=== PATIENT | female | born 1950 | race American Indian/Alaskan Native ===

== ENCOUNTER 2016-11-08 23:11 | Emergency (ER) | payer MEDICARE ==
[2016-11-08 23:39] VITALS: BP 146/85
--- NOTE | 2016-11-08 23:51 | Emergency Department Report ---
Chief Complaint: Abdominal Pain Stated Complaint: ABDOMINAL PAIN - [facility] History of Present Illness: Patient presents with abdominal pain, chest pain (burning), nausea. States the nausea and abdominal pain started in 2012. Had hysterectomy 11/03/16, however abdominal pain started 2012, since then has had colonoscopy/endoscopy, CT abdomen all was wnl. Admits to epigastric pain as burning. Admits to nausea. This episode started 2 hours ago. - ROS Review of Systems: All other systems unremarkable except documentation in HPI - Exam Vital Signs: Vital Signs 11/08/16 23:35 Temperature 98.5 F Pulse Rate 72 Respiratory 20 Rate Blood Pressure 146/85 O2 Sat by Pulse 97 Oximetry Physical Exam: Gen: Female well-developed and nourished, no apparent distress noted, appears to be in pain but nontoxic, patient in wheelchair at time of exam. Cardiovascular: Heart sounds present S1-S2, no murmur, gallop, edema or ectopy noted, 2+ pulses upper and lower extremities Respiratory: Chest symmetry with respirations, lungs clear to auscultate upper and lower lobes, respirations even and unlabored, no rales, rhonchi, crackles noted. Abdomen: bowel sounds hypoactive, hard, distended, tender to palpation just above hysterectomy scar/esequiel, no rigidity, guarding or rebound tenderness Skin: Vertical hysterectomy esequiel present, no redness, drainage, swelling noted. Appears to be healing well Psych: AxOx3, answers questions appropriately, mood full range, affect normal, normal speech and tone. MSE screening note: Focused history and physical exam performed. Due to findings the following was ordered: seen by provider, laboratory and radiology studies ordered, and to go to main ED to be seen by physician ED Medical Decision Making - Medical Decision Making seen by provider, laboratory and radiology studies ordered, and to go to main ED to be seen by physician ED Disposition for MSE Condition: Stable Instructions: Abdominal Pain (ED)
[2016-11-08] MEDS ORDERED: ZOFRAN ODT PO ONE (23:52)
[2016-11-09 00:08] LABS: Basophils % (Auto) 0.7 % (0.0-1.8); Eosinophils % (Auto) 3.4 % (0.0-4.3); Hematocrit 33.7 % (30.3-42.9); Hemoglobin 10.5 gm/dl (10.1-14.3); Mean Corpuscular HGB Conc 31 % (30-34); Mean Corpuscular Hemoglobin 28 pg (28-32); Mean Corpuscular Volume 88 fl (79-97); Platelet Count 364 K/mm3 (140-440); Red Blood Count 3.82 M/mm3 (3.65-5.03); Red Cell Distribution Width 15.2 % (13.2-15.2); White Blood Count 9.5 K/mm3 (4.5-11.0)
[2016-11-09 00:31] LABS: Alanine Aminotransferase 12 units/L (7-56); Albumin 3.8 g/dL (3.9-5); Albumin/Globulin Ratio 1.2 %; Alkaline Phosphatase 86 units/L (35-129); BUN/Creatinine Ratio 21.66; Bilirubin,Total 0.3 mg/dL (0.1-1.2); Blood Urea Nitrogen 13 mg/dL (7-17); Calcium 9.5 mg/dL (8.4-10.2); Carbon Dioxide 28 mmol/L (22-30); Chloride 95.6 mmol/L (98-107); Glucose 113 mg/dL (65-100); Lipase 32 units/L (13-60); Potassium 3.9 mmol/L (3.6-5.0); Sodium 137 mmol/L (137-145); Total Protein 7.1 g/dL (6.3-8.2)
[2016-11-09 00:36] LABS: Anion Gap 17 mmol/L
--- NOTE | 2016-11-09 10:46 | XRay Report ---
KUB: There is marked gaseous distention of the proximal and transverse portions of the colon. The diameter of the transverse colon is just under 12 cm. There is some fecal matter in the descending and sigmoid portions of the colon but there is no obvious impaction. No obvious free air or soft tissue mass. There are surgical closure esequiel over the left pelvis. Impression: Significant colonic distention.
--- NOTE | 2016-11-13 16:34 | ED Elopement Review ---
ED Pt Elopement review - Results review Lab results: Laboratory Tests 11/08/16 11/08/16 11/09/16 23:58 23:58 02:54 WBC 9.5 RBC 3.82 Hgb 10.5 Hct 33.7 MCV 88 MCH 28 MCHC 31 RDW 15.2 Plt Count 364 Lymph % (Auto) 11.8 L [place] % (Auto) 4.9 Eos % (Auto) 3.4 Baso % (Auto) 0.7 Lymph # 1.1 L [place] # 0.5 Eos # 0.3 Baso # 0.1 Seg Neutrophils % 79.2 H Seg Neutrophils # 7.5 Sodium 137 Potassium 3.9 Chloride 95.6 L Carbon Dioxide 28 Anion Gap 17 BUN 13 Creatinine 0.6 L Estimated GFR > 60 BUN/Creatinine Ratio 21.66 Glucose 113 H Calcium 9.5 Total Bilirubin 0.3 AST 15 ALT 12 Alkaline Phosphatase 86 Troponin T < 0.010 Total Protein 7.1 Albumin 3.8 L Albumin/Globulin Ratio 1.2 Lipase 32 - Call Back decision Pt Call Back Decision: No action required
== END 2016-11-09 00:05 | disposition left against medical advice (07) ==
LOC: ED 23:11
DX: R10.9 Unspecified abdominal pain (principal); R07.9 Chest pain, unspecified; R11.0 Nausea; Z53.21 Procedure and treatment not carried out due to patient leaving prior to being seen by health care provider
CPT/HCPCS: 36415; 74000; 80053; 83690; 84484; 85025; 93005; 93010; Q0162

== ENCOUNTER 2018-01-24 14:00 | Observation (INO) | payer MEDICARE, OTHER ==
[2018-01-24] MEDS ORDERED: ASPIRIN PO ONE (14:29)
[2018-01-24 15:23] LABS: Eosinophils # (Auto) 0.1 K/mm3 (0.0-0.4); Eosinophils % (Auto) 1.7 % (0.0-4.3); Hematocrit 28.5 % (30.3-42.9); Hemoglobin 9.4 gm/dl (10.1-14.3); Lymphocytes # (Auto) 0.8 K/mm3 (1.2-5.4); Lymphocytes % (Auto) 25.7 % (13.4-35.0); Mean Corpuscular HGB Conc 33 % (30-34); Mean Corpuscular Hemoglobin 31 pg (28-32); Mean Corpuscular Volume 95 fl (79-97); Monocytes # (Auto) 0.3 K/mm3 (0.0-0.8); Monocytes % (Auto) 9.6 % (0.0-7.3); Platelet Count 193 K/mm3 (140-440); Red Blood Count 3.01 M/mm3 (3.65-5.03); Red Cell Distribution Width 14.5 % (13.2-15.2)
[2018-01-24 15:36] LABS: BUN/Creatinine Ratio 18; Blood Urea Nitrogen 9 mg/dL (7-17); Calcium 8.7 mg/dL (8.4-10.2); Hemolysis Index 4
[2018-01-24 15:53] LABS: Chol/HDL Ratio 2.26 %; HDL Cholesterol 53 mg/dL (40-59); LDL Cholesterol,Direct 59 mg/dL (50-130)
--- NOTE | 2018-01-24 17:31 | Emergency Department Report ---
ED Chest Pain HPI - General Chief Complaint: Chest Pain Stated Complaint: CHEST PAIN Time Seen by Provider: 01/24/18 16:19 Source: patient, family, EMS Mode of arrival: Stretcher Limitations: No Limitations - History of Present Illness MD Complaint: chest pain Pain Location: substernal Pain Radiation: jaw/teeth Quality: other (discomfor) - Related Data Home Medications Medication Instructions Recorded Confirmed Last Taken Aspirin [Baby Aspirin] 81 mg PO QDAY 07/23/13 07/23/13 07/23/13 06:00 Furosemide [Lasix] 40 mg PO DAILY 07/23/13 07/23/13 07/20/13 06:00 Glimepiride [Amaryl] mg PO QAM 07/23/13 07/23/13 07/22/13 06:00 Levothyroxine [Synthroid] mcg PO QAM 07/23/13 07/23/13 07/23/13 06:00 Losartan [Cozaar] mg PO QDAY 07/23/13 07/23/13 07/23/13 06:00 Metformin HCl [Metformin HCl ER] 1,000 mg PO BID 07/23/13 07/23/13 07/22/13 22: 00 Rosuvastatin Calcium [Crestor] mg PO QDAY 07/23/13 07/23/13 07/23/13 06:00 Previous Rx's Medication Instructions Recorded Last Taken Type Omeprazole Magnesium [Prilosec Otc] 20 mg PO QDAY #7 tablet. 07/23/13 Unknown Rx Allergies Allergy/AdvReac Type Severity Reaction Status Date / Time Penicillins Allergy Severe Swelling Verified 07/23/13 09:01 tetracycline [Tetracycline] AdvReac Unknown Unknown Verified 07/23/13 09:01 Heart Score - HEART Score Age: > 65 Risk factors: 1-2 risk factors Troponin: 1-3x normal limit ED Review of Systems ROS: Stated complaint: CHEST PAIN Other details as noted in HPI Respiratory: denies: cough Cardiovascular: chest pain ED Past Medical Hx - Past Medical History Hx Congestive Heart Failure: Yes Hx Diabetes: Yes Hx Arthritis: Yes Hx COPD: Yes Additional medical history: depression. anxiety. panic attacks. sleep apnea. hypothyroidism - Surgical History Hx Cholecystectomy: Yes Additional Surgical History: hernia repair. thyroidectomy. HYST 11/03/16 - Social History Smoking Status: Former Smoker Substance Use Type: None - Medications Home Medications: Home Medications Medication Instructions Recorded Confirmed Last Taken Type Aspirin [Baby Aspirin] 81 mg PO QDAY 07/23/13 07/23/13 07/23/13 06:00 History Furosemide [Lasix] 40 mg PO DAILY 07/23/13 07/23/13 07/20/13 06:00 History Glimepiride [Amaryl] mg PO QAM 07/23/13 07/23/13 07/22/13 06:00 History Levothyroxine [Synthroid] mcg PO QAM 07/23/13 07/23/13 07/23/13 06:00 History Losartan [Cozaar] mg PO QDAY 07/23/13 07/23/13 07/23/13 06:00 History Metformin HCl [Metformin HCl ER] 1,000 mg PO BID 07/23/13 07/23/13 07/22/13 22: 00 History Omeprazole Magnesium [Prilosec Otc] 20 mg PO QDAY #7 tablet. 07/23/13 Unknown Rx Rosuvastatin Calcium [Crestor] mg PO QDAY 07/23/13 07/23/13 07/23/13 06:00 History ED Physical Exam - General Limitations: No Limitations General appearance: alert, in no apparent distress - Head Head exam: Present: atraumatic, normocephalic - Eye Eye exam: Present: normal appearance - ENT ENT exam: Present: normal exam - Neck Neck exam: Present: normal inspection - Respiratory Respiratory exam: Present: normal lung sounds bilaterally - Cardiovascular Cardiovascular Exam: Present: regular rate, normal rhythm - GI/Abdominal GI/Abdominal exam: Present: soft, normal bowel sounds. Absent: distended, tenderness - Extremities Exam Extremities exam: Present: normal inspection - Back Exam Back exam: Present: normal inspection - Neurological Exam Neurological exam: Present: alert, oriented X3, CN II-XII intact ED Course Vital Signs 01/24/18 14:20 Temperature 98.6 F Pulse Rate 76 Respiratory 18 Rate Blood Pressure 117/75 O2 Sat by Pulse 99 Oximetry LEONEL score - Leonel Score Age > 65: (0) No Aspirin use within the Past 7 Days: (1) Yes 3 or more CAD Risk Factors: (1) Yes 2 or more Angina events in past 24 hrs: (1) Yes Known CAD with more than 50% Stenosis: (0) No Elevated Cardiac Markers: (0) No ST Deviation Greater than 0.5mm: (0) No LEONEL Score: 3 ED Medical Decision Making - Lab Data Result diagrams: 01/24/18 14:55 01/24/18 14:55 - EKG Data -: EKG Interpreted by Me (artifact) EKG shows normal: sinus rhythm Rate: normal - Medical Decision Making chest pain d/w Dr Trejo who will admit Critical care attestation.: If time is entered above; I have spent that time in minutes in the direct care of this critically ill patient, excluding procedure time. ED Disposition Clinical Impression: Chest pain Disposition: [id number] OP ADMIT IP TO THIS HOSP Is pt being admited?: Yes Does the pt Need Aspirin: No Condition: Stable Instructions: Chest Pain (ED) Referrals: PRIMARY CARE, [Primary Care Provider] - 3-5 Days Time of Disposition: 17:31
--- NOTE | 2018-01-24 17:40 | History and Physical Report ---
History of Present Illness Chief complaint: My chest has been hurting me History of present illness: 67 YO Female with OA, COPD, DM, CHF, Depression, Anxiety, EDSON, Obesity, Hypothyroidism presents to ED for evaluation. Pt states that she has experienced pain in her chest for the past 3 days with persistent and worsening symptoms over the past 1 way. Pt stats that pain is 4-6/10, substernal, radiates to left jaw, sharp in nature, worse with exertion, relieved with rest, constant. Pt denies fever, chills, palpitations, shortness of breath, NVD, Syncope, prolonged travel/immobility, unilateral leg pain, BRBPR, individual/ family history of DVT/PE, productive cough, hemoptysis, skin rash, or recent ill contacts. PT seen and evaluated in ED and found to have symptoms consistent with ACS as well as CHF decompensation. Pt admitted to telemetry. Cardiology consulted in ED. Past History Past Medical History: arthritis, diabetes, heart failure, other (OA, COPD, DM, CHF, Depression, Anxiety, EDSON, Obesity, Hypothyroidism) Past Surgical History: cholecystectomy, thyroidectomy, hysterectomy, hernia repair Social history: , lives with family. denies: smoking, alcohol abuse Family history: diabetes, hypertension Medications and Allergies Allergies Allergy/AdvReac Type Severity Reaction Status Date / Time Penicillins Allergy Severe Swelling Verified 07/23/13 09:01 tetracycline [Tetracycline] AdvReac Unknown Unknown Verified 07/23/13 09:01 Home Medications Medication Instructions Recorded Confirmed Last Taken Type Levothyroxine [Synthroid] 0.2 mcg PO QAM 07/23/13 01/24/18 07/23/13 06:00 History Losartan [Cozaar] 10 mg PO QDAY 07/23/13 01/24/18 07/23/13 06:00 History Metformin HCl [Metformin HCl ER] 1,000 mg PO BID 07/23/13 01/24/18 07/22/13 22: 00 History AtorvaSTATin [Lipitor] 10 mg PO QHS 01/24/18 01/24/18 Unknown History Carvedilol 01/24/18 Unknown History Review of Systems Constitutional: no weight loss, no weight gain, no fever, no chills Ears, nose, mouth and throat: no ear pain, no ear discharge, no tinnitis, no decreased hearing, no nose pain, no nasal congestion Breasts: no change in shape, no swelling, no mass Cardiovascular: chest pain, no palpitations, no rapid/irregular heart beat, no syncope Respiratory: no cough, no cough with sputum, no excessive sputum, no hemoptysis Gastrointestinal: no abdominal pain, no nausea, no vomiting, no diarrhea Genitourinary Female: no pelvic pain, no flank pain, no menorrhagia, no dysuria , no urinary frequency, no urgency Rectal: no pain, no incontinence, no bleeding Musculoskeletal: no neck stiffness, no neck pain, no shooting arm pain, no arm numbness/tingling, no low back pain, no shooting leg pain Integumentary: no rash, no pruritis, no redness, no sores, no wounds, no jaundice Neurological: no transient paralysis, no weakness, no parathesias, no numbness, no tingling, no seizures, no syncope Psychiatric: no anxiety, no memory loss, no change in sleep habits, no sleep disturbances, no insomnia, no hypersomnia Endocrine: no cold intolerance, no heat intolerance, no polyphagia, no excessive thirst, no polydipsia, no polyuria, no nocturia Hematologic/Lymphatic: no easy bruising, no easy bleeding, no lymphadenopathy Allergic/Immunologic: no urticaria, no allergic rhinitis, no wheezing, no persistent infections, no anaphylaxis Exam - Constitutional Vitals: Temp Pulse Resp BP Pulse Ox 98.6 F 76 18 117/75 99 01/24/18 14:20 01/24/18 14:20 01/24/18 14:20 01/24/18 14:20 01/24/18 14:20 General appearance: Present: mild distress - EENT Eyes: Present: PERRL ENT: hearing intact, clear oral mucosa - Neck Neck: Present: supple, normal ROM - Respiratory Respiratory effort: normal Respiratory: bilateral: CTA - Cardiovascular Heart Sounds: Present: S1 & S2. Absent: rub, click - Extremities Extremities: pulses symmetrical, No edema Peripheral Pulses: within normal limits - Abdominal General gastrointestinal: Present: soft, non-tender, non-distended, normal bowel sounds Female genitourinary: Present: normal - Integumentary Integumentary: Present: clear, warm, dry - Musculoskeletal Musculoskeletal: gait normal, strength equal bilaterally - Psychiatric Psychiatric: appropriate mood/affect, intact judgment & insight - Neurologic Neurologic: CNII-XII intact, moves all extremities Results - Labs CBC & Chem 7: 01/24/18 14:55 01/24/18 17:23 Labs: Abnormal lab results 01/24/18 01/24/18 Range/Units 14:55 14:55 WBC 3.3 L (4.5-11.0) K/mm3 RBC 3.01 L (3.65-5.03) M/mm3 Hgb 9.4 L (10.1-14.3) gm/dl Hct 28.5 L (30.3-42.9) % [place] % (Auto) 9.6 H (0.0-7.3) % Lymph # 0.8 L (1.2-5.4) K/mm3 Chloride 97.6 L (98-107) mmol/L Creatinine 0.5 L (0.7-1.2) mg/dL Troponin T 0.048 H (0.00-0.029) ng/mL Assessment and Plan - Patient Problems (1) ACS (acute coronary syndrome) Current Visit: Yes Status: Acute Plan to address problem: Admit to telemetry, serial cardiac enzymes, ekg, cardiology consulted, morphine , supplemental oxygen, nitro, aspirin, therapeutic lovenox (2) CHF (congestive heart failure) Current Visit: Yes Status: Suspected Qualifiers: Heart failure type: combined systolic and diastolic Heart failure chronicity: acute on chronic Qualified Code(s): I50.43 - Acute on chronic combined systolic (congestive) and diastolic (congestive) heart failure Plan to address problem: Admit to telemetry, Echo, serial cardiac enzymes, ekg, telemetry, strict I/O, Afterload reduction, monitor uop q shift, daily weight, (3) Hypothyroid Current Visit: Yes Status: Acute Qualifiers: Hypothyroidism type: unspecified Qualified Code(s): E03.9 - Hypothyroidism , unspecified Plan to address problem: Continue synthroid, supportive care. (4) Diabetes Current Visit: Yes Status: Acute Plan to address problem: ADA diet, insulin, accu check (5) DVT prophylaxis Current Visit: Yes Status: Acute Plan to address problem: SCD to BLE while in bed
[2018-01-24 17:50] LABS: BUN/Creatinine Ratio 18; Blood Urea Nitrogen 9 mg/dL (7-17); Calcium 8.8 mg/dL (8.4-10.2); Hemolysis Index 5
[2018-01-24 17:51] LABS: INR 0.99 (0.87-1.13)
[2018-01-24 17:52] LABS: Partial Thromboplastin Time 29.4 Sec. (24.2-36.6)
--- NOTE | 2018-01-24 18:16 | XRay Report ---
FINAL REPORT PROCEDURE: XR CHEST ROUTINE 2V TECHNIQUE: PA and lateral chest radiographs were obtained. CPT 39394 HISTORY: chest pain COMPARISON: No prior studies are available for comparison. FINDINGS: The heart is enlarged. The pulmonary vasculature is not distended. No evidence of pulmonary edema pleural effusion infiltrate or mass. Lungs are hyperinflated consistent with underlying COPD. No acute bone abnormalities are seen. There is moderate thoracolumbar scoliosis convex to the left apex in the region of T12 per IMPRESSION: COPD. Cardiomegaly. Scoliosis. No other abnormalities are seen..
[2018-01-24] MEDS ORDERED: ZOFRAN IV PRN (18:26)
[2018-01-24] MEDS ORDERED: TYLENOL PO PRN (18:26)
[2018-01-24] MEDS ORDERED: MORPHINE IV PRN (18:26)
[2018-01-24] MEDS ORDERED: NITROSTAT SL PRN (18:26)
[2018-01-24] MEDS ORDERED: PROVENTIL IH PRN (18:26)
[2018-01-24] MEDS ORDERED: SODIUM CHLORIDE FLUSH SYRINGE 10 ML IV PRN ×2 (18:26)
[2018-01-24] MEDS: BABY ASPIRIN PO STA ×2 (18:36→19:44)
[2018-01-24] MEDS ORDERED: PEPCID PO SCH (22:00)
[2018-01-24] MEDS: LOVENOX SUB-Q SCH (23:22)
[2018-01-24] MEDS: SODIUM CHLORIDE FLUSH SYRINGE 10 ML IV SCH (23:23)
[2018-01-25] MEDS ORDERED: NON-FORMULARY (Omeprazole Magnesium [Prilosec Otc] 20 MG) PO SCH (10:00)
[2018-01-25] MEDS: BABY ASPIRIN PO SCH (10:26)
[2018-01-25] MEDS: PROTONIX PO SCH (10:26)
[2018-01-25] MEDS: COZAAR PO SCH (10:26)
[2018-01-25] MEDS: LOVENOX SUB-Q SCH ×2 (10:26→22:09)
--- NOTE | 2018-01-25 10:49 | Progress Note ---
Assessment and Plan Assessment and plan: ACS (acute coronary syndrome) Continue telemetry and follow-up serial cardiac enzymes, ekg. Cardiology consulted. Continue supplemental oxygen, nitro, aspirin, CHF (congestive heart failure) Follow-up Echo, serial cardiac enzymes, ekg, telemetry monitoring. Continue strict I/O, Afterload reduction, monitor uop q shift, daily weight Hypothyroid Continue synthroid, supportive care. Diabetes ADA diet, insulin, accu check DVT prophylaxis SCD to BLE while in bed History Interval history: Patient denies any chest pain or shortness of breath. Hospitalist Physical - Constitutional Vitals: Temp Pulse Resp BP Pulse Ox 98.6 F 78 18 116/59 96 01/25/18 08:00 01/25/18 08:00 01/25/18 08:00 01/25/18 10:26 01/25/18 08:00 General appearance: Present: no acute distress - EENT Eyes: Present: PERRL, EOM intact ENT: hearing intact, clear oral mucosa, dentition normal - Neck Neck: Present: supple, normal ROM - Respiratory Respiratory effort: normal Respiratory: bilateral: diminished, rales - Cardiovascular Rhythm: regular Heart Sounds: Present: S1 & S2. Absent: gallop, rub - Extremities Extremities: no ischemia, No edema, Full ROM - Abdominal General gastrointestinal: soft, non-tender, non-distended, normal bowel sounds - Integumentary Integumentary: Present: clear, warm, dry - Neurologic Neurologic: CNII-XII intact, moves all extremities Results - Labs CBC & Chem 7: 01/24/18 14:55 01/24/18 17:23 Labs: Laboratory Last Values WBC 3.3 K/mm3 (4.5-11.0) L 01/24/18 14:55 RBC 3.01 M/mm3 (3.65-5.03) L 01/24/18 14:55 Hgb 9.4 gm/dl (10.1-14.3) L 01/24/18 14:55 Hct 28.5 % (30.3-42.9) L 01/24/18 14:55 MCV 95 fl (79-97) 01/24/18 14:55 MCH 31 pg (28-32) 01/24/18 14:55 MCHC 33 % (30-34) 01/24/18 14:55 RDW 14.5 % (13.2-15.2) 01/24/18 14:55 Plt Count 193 K/mm3 (140-440) 01/24/18 14:55 Lymph % (Auto) 25.7 % (13.4-35.0) 01/24/18 14:55 [place] % (Auto) 9.6 % (0.0-7.3) H 01/24/18 14:55 Eos % (Auto) 1.7 % (0.0-4.3) 01/24/18 14:55 Baso % (Auto) 1.0 % (0.0-1.8) 01/24/18 14:55 Lymph # 0.8 K/mm3 (1.2-5.4) L 01/24/18 14:55 [place] # 0.3 K/mm3 (0.0-0.8) 01/24/18 14:55 Eos # 0.1 K/mm3 (0.0-0.4) 01/24/18 14:55 Baso # 0.0 K/mm3 (0.0-0.1) 01/24/18 14:55 Seg Neutrophils % 62.0 % (40.0-70.0) 01/24/18 14:55 Seg Neutrophils # 2.0 K/mm3 (1.8-7.7) 01/24/18 14:55 PT 13.6 Sec. (12.2-14.9) 01/24/18 17:23 INR 0.99 (0.87-1.13) 01/24/18 17:23 APTT 29.4 Sec. (24.2-36.6) 01/24/18 17:23 Sodium 138 mmol/L (137-145) 01/24/18 17:23 Potassium 3.8 mmol/L (3.6-5.0) 01/24/18 17:23 Chloride 96.7 mmol/L (98-107) L 01/24/18 17:23 Carbon Dioxide 24 mmol/L (22-30) 01/24/18 17:23 Anion Gap 21 mmol/L 01/24/18 17:23 BUN 9 mg/dL (7-17) 01/24/18 17:23 Creatinine 0.5 mg/dL (0.7-1.2) L 01/24/18 17:23 Estimated GFR > 60 ml/min 01/24/18 17:23 BUN/Creatinine Ratio 18 % 01/24/18 17:23 Glucose 65 mg/dL (65-100) 01/24/18 17:23 POC Glucose 62 (70-105) L 01/24/18 23:08 Calcium 8.8 mg/dL (8.4-10.2) 01/24/18 17:23 Magnesium 1.10 mg/dL (1.7-2.3) L 01/24/18 17:23 Troponin T 0.038 ng/mL (0.00-0.029) H 01/25/18 00:14 NT-Pro-B Natriuret Pep 1166 pg/mL (0-900) H 01/24/18 17:23 Triglycerides 60 mg/dL (2-149) 01/24/18 14:55 Cholesterol 120 mg/dL (50-199) 01/24/18 14:55 LDL Cholesterol Direct 59 mg/dL (50-130) 01/24/18 14:55 HDL Cholesterol 53 mg/dL (40-59) 01/24/18 14:55 Cholesterol/HDL Ratio 2.26 % 01/24/18 14:55
[2018-01-25] MEDS ORDERED: D50W (25GM) Syringe IV PRN (10:53)
[2018-01-25] MEDS ORDERED: LEXISCAN IV ONE ×2 (12:02→14:00)
[2018-01-25] MEDS: HumuLIN R SUB-Q SCH ×3 (15:01→22:13)
[2018-01-25] MEDS: SYNTHROID PO SCH (16:23)
[2018-01-25 16:52] LABS: Hematocrit 28.9 % (30.3-42.9); Hemoglobin 9.5 gm/dl (10.1-14.3)
--- NOTE | 2018-01-25 18:10 | Consultation ---
History of Present Illness Consult date: 01/25/18 Consult reason: chest pain History of present illness: 67-year-old woman with multiple comorbidities including diabetes, hypertension and chronic anemia. She presents to the hospital with chest pain. She describes, poorly characterized nonexertional chest pain with no significant associated factors. She was evaluated in the emergency room referred for admission. Serial EKGs and hospital have been normal sinus rhythm, normal ECG. Cardiac isoenzymes were unremarkable. Today, she underwent a Persantine thallium stress test which was normal, with no ischemic defects. An echocardiogram demonstrated normal left ventricular systolic function with ejection fraction 60-65%. The only significant finding on her echocardiogram was a presence of a moderate to severe degree of aortic sclerosis, but only mild aortic stenosis with a mean transaortic gradient of 7 mmHg. Past History Past Medical History: arthritis, diabetes, other (OA, COPD, DM, CHF, Depression , Anxiety, EDSON, Obesity, Hypothyroidism) Past Surgical History: cholecystectomy, thyroidectomy, hysterectomy, hernia repair Social history: , lives with family. denies: smoking, alcohol abuse Family history: diabetes, hypertension Medications and Allergies Allergies Allergy/AdvReac Type Severity Reaction Status Date / Time Penicillins Allergy Severe Swelling Verified 07/23/13 09:01 tetracycline [Tetracycline] AdvReac Unknown Unknown Verified 07/23/13 09:01 Home Medications Medication Instructions Recorded Confirmed Last Taken Type Levothyroxine [Synthroid] 0.2 mcg PO QAM 07/23/13 01/25/18 1 Day Ago History ~01/24/18 Losartan [Cozaar] 10 mg PO QDAY 07/23/13 01/25/18 1 Day Ago History ~01/24/18 Metformin HCl [Metformin HCl ER] 1,000 mg PO BID 07/23/13 01/25/18 1 Day Ago History ~01/24/18 AtorvaSTATin [Lipitor] 10 mg PO QHS 01/24/18 01/25/18 1 Day Ago History ~01/24/18 Carvedilol [Coreg] 3.125 mg PO DAILY 01/24/18 01/25/18 1 Day Ago History ~01/24/18 Active Meds: Active Medications Acetaminophen (Tylenol) 650 mg PO Q4H PRN PRN Reason: Pain MILD(1-3)/Fever >100.5/PRATHER Albuterol (Proventil) 2.5 mg IH Q4HRT PRN PRN Reason: Shortness Of Breath Aspirin (Baby Aspirin) 81 mg PO QDAY [facility] Last Admin: 01/25/18 10:26 Dose: 81 mg Dextrose (D50w (25gm) Syringe) 50 ml IV PRN PRN PRN Reason: Hypoglycemia Enoxaparin Sodium (Lovenox) 90 mg 1 mg/kg (90 mg) SUB-Q Q12HR [facility] Last Admin: 01/25/18 10:26 Dose: 90 mg Insulin Human Regular (Humulin R) 0 units SUB-Q ACHS [facility]; Protocol Last Admin: 01/25/18 16:28 Dose: Not Given Levothyroxine Sodium (Synthroid) 150 mcg PO 0600 [facility] Last Admin: 01/25/18 16:23 Dose: 150 mcg Losartan Potassium (Cozaar) 25 mg PO QDAY [facility] Last Admin: 01/25/18 10:26 Dose: 25 mg Morphine Sulfate (Morphine) 2 mg IV Q4H PRN PRN Reason: Pain, Moderate (4-6) Nitroglycerin (Nitrostat) 0.4 mg SL Q5M PRN PRN Reason: Chest Pain Ondansetron HCl (Zofran) 4 mg IV Q8H PRN PRN Reason: Nausea And Vomiting Pantoprazole Sodium (Protonix) 20 mg PO QDAY [facility] Last Admin: 01/25/18 10:26 Dose: 20 mg Sodium Chloride (Sodium Chloride Flush Syringe 10 Ml) 10 ml IV BID [facility] Last Admin: 01/24/18 23:23 Dose: 10 ml Sodium Chloride (Sodium Chloride Flush Syringe 10 Ml) 10 ml IV PRN PRN PRN Reason: LINE FLUSH Sodium Chloride (Sodium Chloride Flush Syringe 10 Ml) 10 ml IV PRN PRN PRN Reason: LINE FLUSH Review of Systems Cardiovascular: chest pain, shortness of breath, no orthopnea, no palpitations, no rapid/irregular heart beat, no edema, no syncope, no lightheadedness Physical Examination Vital Signs Temp Pulse Resp BP Pulse Ox 98.6 F 76 18 117/75 99 01/24/18 14:20 01/24/18 14:20 01/24/18 14:20 01/24/18 14:20 01/24/18 14:20 General appearance: no acute distress HEENT: Positive: PERRL Neck: Positive: neck supple Cardiac: Positive: Reg Rate and Rhythm, Systolic Murmur Lungs: Positive: Decreased Breath Sounds Neuro: Positive: Grossly Intact Abdomen: Positive: Soft Female genitourinary: deferred Skin: Positive: Clear Extremities: Absent: edema Results 01/25/18 16:17 01/24/18 17:23 CBC 01/25/18 Range/Units 16:17 Hgb 9.5 L (10.1-14.3) gm/dl Hct 28.9 L (30.3-42.9) % EKG interpretations - Telemetry EKG Rhythm: Sinus Rhythm Assessment and Plan - Patient Problems (1) Chest pain Current Visit: Yes Status: Acute Plan to address problem: Patient's presenting chest pain is atypical, extensive cardiac workup is negative including negative thallium stress test, and echocardiogram with normal ventricular systolic function, ejection fraction 60-65%. (2) Aortic valve stenosis Current Visit: Yes Status: Acute Plan to address problem: The patient has moderate to severe aortic valve sclerosis, but only very mild aortic stenosis with a mean gradient of 7 mmHg. No further inpatient cardiac intervention is recommended for this lesion. As outpatient, she should undergo cardiology follow-up, and have a follow-up echocardiogram in one year. At the discretion of her human resources trainer, bacterial endocarditis prophylaxis may be indicated for dental procedures.
[2018-01-25] MEDS: SODIUM CHLORIDE FLUSH SYRINGE 10 ML IV SCH ×2 (19:09→22:10)
[2018-01-25] MEDS: SENOKOT PO PRN (22:09)
--- NOTE | 2018-01-26 00:57 | Treadmill Report ---
LEFT VENTRICLE: Left ventricular chamber size is within normal spread. Perfusion study demonstrates homogeneous uptake of the tracer in all segments on the stress images. No significant stress perfusion defects identified. There is breast attenuation artifact on the resting study. Gated analysis demonstrates normal left ventricular systolic function, ejection fraction greater than 70%. CONCLUSION: Normal myocardial perfusion study. JOB# [id number] CA/NTS
[2018-01-26] MEDS: SYNTHROID PO SCH (05:18)
--- NOTE | 2018-01-26 08:08 | Discharge Summary ---
Providers - Providers Date of Admission: 01/24/18 18:26 Date of discharge: 01/26/18 Attending physician: FLAVIO CORTEZ 01/24/18 Consult to Cardiac Rehabilitation [CONS] Routine Reason For Exam: Phase I 01/24/18 18:31 Consult to Physician [CONS] Routine Comment: Consulting Provider: LINDA MILLER Physician Instructions: Reason For Exam: acs Primary care physician: PRESS HELPER Hospitalization Reason for admission: cp Condition: Stable Hospital course: This is a 67-year-old female with comorbidities including diabetes, hypertension and chronic anemia who presented to the hospital with chief complaint of chest pain. Patient had serial EKGs that revealed normal sinus rhythm with no ST-T wave changes. Patient underwent Persantine thallium stress test which was normal with no evidence of ischemia. Echocardiogram was performed which revealed left ventricular systolic function normal with EF of 66 %. However, echocardiogram revealed moderate to severe degree of aortic sclerosis but only mild aortic stenosis with a mean transaortic gradient of 7 mmHg. Cardiology saw the patient in consultation and felt the patient could be discharged home and follow-up as an outpatient. Patient should have echocardiogram in 1 year and at the discretion of her conflicts analyst, bacterial endocarditis prophylaxis may be indicated for dental procedures. Dedicated discharge time 32 minutes. Disposition: [id number] TO HOME OR SELFCARE Time spent for discharge: 32 Core Measure Documentation - Palliative Care Palliative Care/ Comfort Measures: Not Applicable - Core Measures Any of the following diagnoses?: none Exam - Constitutional Vitals: Temp Pulse Resp BP Pulse Ox 97.9 F 84 18 121/68 92 01/26/18 05:11 01/26/18 05:11 01/26/18 05:11 01/26/18 05:11 01/26/18 05:11 General appearance: Present: no acute distress, well-nourished - EENT Eyes: Present: PERRL ENT: hearing intact, clear oral mucosa - Neck Neck: Present: supple, normal ROM - Respiratory Respiratory effort: normal Respiratory: bilateral: CTA - Cardiovascular Heart Sounds: Present: S1 & S2. Absent: rub, click - Extremities Extremities: pulses symmetrical, No edema Peripheral Pulses: within normal limits - Abdominal General gastrointestinal: Present: soft, non-tender, non-distended, normal bowel sounds Female genitourinary: Present: normal - Integumentary Integumentary: Present: clear, warm, dry - Musculoskeletal Musculoskeletal: gait normal, strength equal bilaterally - Psychiatric Psychiatric: appropriate mood/affect, intact judgment & insight - Neurologic Neurologic: CNII-XII intact, moves all extremities Plan Activity: no restrictions Weight Bearing Status: Full Weight Bearing Diet: regular Follow up with: PRIMARY CARE, [Primary Care Provider] - 3-5 Days LINDA MILLER MD [Staff Physician] - 7 Days Prescriptions: Aspirin [Aspirin BABY CHEW TAB] 81 mg PO QDAY #30 tab.chew AtorvaSTATin [Lipitor] 10 mg PO QHS #30 tablet Carvedilol [Coreg] 3.125 mg PO DAILY #30 tablet Levothyroxine [Synthroid] 0.2 mcg PO QAM #30 tablet Losartan [Cozaar] 10 mg PO QDAY #30 tablet
[2018-01-26 08:57] VITALS: BP 119/71
[2018-01-26] MEDS: HumuLIN R SUB-Q SCH (09:25)
[2018-01-26] MEDS: SENOKOT PO PRN (09:55)
[2018-01-26] MEDS: COZAAR PO SCH (09:56)
[2018-01-26] MEDS: BABY ASPIRIN PO SCH (09:56)
[2018-01-26] MEDS: LOVENOX SUB-Q SCH (09:56)
[2018-01-26] MEDS: PROTONIX PO SCH (09:56)
--- NOTE | 2018-01-26 11:09 | Progress Note ---
Assessment and Plan Chest pain, atypical normal persantine thallium stress test echocardiogram demonstrated presence of a moderate to severe degree of aortic sclerosis, but only mild aortic stenosis with a mean transaortic gradient of 7 mmHg. Normal left ventricular systolic function with ejection fraction 60-65%. Diabetes Hypertension Chronic anemia Conservative cardiac management. Subjective Date of service: 01/26/18 Interval history: Patient denies chest pain. There is no shortness of breath. Objective Vital Signs Temp Pulse Resp BP BP Pulse Ox 01/26/18 07:34 76 97 01/26/18 07:33 99.1 F 75 18 119/71 97 01/26/18 05:11 97.9 F 84 18 121/68 92 01/26/18 04:30 73 108/59 95 01/26/18 00:34 98.3 F 83 20 113/60 98 01/25/18 23:32 78 113/60 98 01/25/18 23:00 81 01/25/18 20:04 97.7 F 71 18 98/70 98 01/25/18 19:33 82 98/70 97 01/25/18 15:42 97.0 F L 87 20 110/77 97 01/25/18 13:48 97 H 122/72 01/25/18 13:47 104 H 136/72 01/25/18 13:46 105 H 131/69 01/25/18 13:45 106 H 121/72 01/25/18 13:44 111 H 121/83 01/25/18 13:43 98 H 137/71 01/25/18 12:50 65 121/72 - Physical Examination General: No Apparent Distress HEENT: Positive: PERRL Neck: Positive: neck supple Cardiac: Positive: Reg Rate and Rhythm Lungs: Positive: Decreased Breath Sounds Neuro: Positive: Grossly Intact Extremities: Absent: edema - Labs and Meds CBC 01/25/18 Range/Units 16:17 Hgb 9.5 L (10.1-14.3) gm/dl Hct 28.9 L (30.3-42.9) %
--- NOTE | 2018-01-30 11:02 | Query- Chest Pain ---
Kasi Cole____Von Date:____01/30/18 Segment Producer/CDS: Harleysa / Jhonny Phone#:___[phone] Exercise your independent professional judgment when responding to query. Questions asked do not imply a particular answer is desired or expected. We greatly appreciate your clarification on this issue. Clinical Documentation States: 67 year old female was admitted on 01/24/18 The discharge summary (Dr. Longoria) states " This is a 67-year-old female with comorbidities including diabetes, hypertension and chronic anemia who presented to the hospital with chief complaint of chest pain. Patient had serial EKGs that revealed normal sinus rhythm with no ST-T wave changes. Patient underwent Persantine thallium stress test which was normal with no evidence of ischemia. " Please document the etiology of Chest Pain: [ ] Myocardial Infarction [ ] Pneumonia [ ] Mediastinitis [ ] Costochondritis [ ] Pulmonary Embolism [ ] Coronary Artery Disease [x ] GERD [ ] Other: [ ] Comment/Explanation: Present on Admission: [x ] Yes (Y) [ ] Clinically undeterminable (W) [ ] No(N) Please document response in your Progress Notes and/or Discharge Summary and indicate if the condition was present on admission. PHILIP
== END 2018-01-26 11:42 | disposition home or self-care (01) ==
LOC: ED 14:00 → INTOOBSV 18:26 → 4A 18:26
PROVIDERS: ADMIT Internal Medicine; ATTEND Hospitalist
DX: I24.9 Acute ischemic heart disease, unspecified (principal); I11.0 Hypertensive heart disease with heart failure; I50.9 Heart failure, unspecified; K21.9 Gastro-esophageal reflux disease without esophagitis; E03.9 Hypothyroidism, unspecified; E11.9 Type 2 diabetes mellitus without complications; G47.33 Obstructive sleep apnea (adult) (pediatric); F32.9 Major depressive disorder, single episode, unspecified; M19.90 Unspecified osteoarthritis, unspecified site; F41.0 Panic disorder [episodic paroxysmal anxiety]; J44.9 Chronic obstructive pulmonary disease, unspecified; Z90.49 Acquired absence of other specified parts of digestive tract; Z87.891 Personal history of nicotine dependence; Z83.3 Family history of diabetes mellitus; Z79.82 Long term (current) use of aspirin; Z79.899 Other long term (current) drug therapy; Z82.49 Family history of ischemic heart disease and other diseases of the circulatory system
CPT/HCPCS: 36415; 71046; 78452; 80048; 80061; 82962; 83735; 83880; 84484; 85014; 85018; 85025; 85610; 85730; 93005; 93010; 93017; 93306; 96372; 99285; A9502; G0378; J1650; J2785